=== PATIENT | male | born 2000 | race Caucasian/White ===

== ENCOUNTER 2020-10-03 14:49 | Emergency (ER) | payer OTHER ==
[~2020-10-03] VITALS: Ht 188 cm; Wt 85.1 kg
[2020-10-03 14:49] VITALS: BP 141/96
--- NOTE | 2020-10-03 15:09 | PHYS DOC ---
Adult General Chief Complaint Chief Complaint: ELBOW PROBLEM HPI HPI Patient is a 20-year-old male patient who presents to the ED today complaining of mild to moderate left elbow pain. Patient states the pain began last year after weightlifting and PT training. Patient says the pain has been on and off since then but today he was helping a friend move, he lifted something heavy and developed increasing pain especially when he extends his left elbow. He reports he is right-handed. Denies anything relieving the pain. States the pain has been constant since this afternoon. Describes the pain as sharp. Review of Systems Review of Systems Constitutional: Denies fever or chills [] Musculoskeletal: Reports left elbow pain Integument: Denies rash or skin lesions [] Neurologic: Denies headache, focal weakness or sensory changes [] All other systems were reviewed and found to be within normal limits, except as documented in this note. Allergies Allergies Allergies Coded Allergies Type Severity Reaction Last Updated Verified No Known Drug Allergies 10/03/20 No Physical Exam Physical Exam Constitutional: Well developed, well nourished, no acute distress, non-toxic appearance. [] Skin: Warm, dry, no erythema, no rash. [] Back: No tenderness, no CVA tenderness. [] Extremities: Left elbow with no obvious deformity, no edema, no ecchymosis, tenderness diffusely across the elbow. Full passive range of motion to the elbow including flexion and extension, elbow flexion. From of the left forearm, full range of motion to the left fingers. Adequate radial, medial, ulnar sensation to the left fingers. Sensation intact. Neurologic: Alert and oriented X 3, normal motor function, normal sensory function, no focal deficits noted. [] Psychologic: Affect normal, judgement normal, mood normal. [] EKG EKG [] Radiology/Procedures Radiology/Procedures []PROCEDURE: ELBOW LEFT 3V Left elbow 3 views 10/03/2020. Reason for exam: Pain. No fracture or dislocation is seen. There is no apparent joint narrowing or joint effusion. IMPRESSION: No apparent abnormality. Electronically signed by: Kristie King Jr., MD (10/03/2020 3:55 PM) [id number] DICTATED AND SIGNED BY: KRISTIE KING Jr, MD DATE: 10/03/20 4635 CC: [place]; DEAN OWEN APRN; PCP,NO ~MTH0 0 Heart Score Risk Factors: Risk Factors: DM, Current or recent (<one month) smoker, HTN, HLP, family history of CAD, obesity. Risk Scores: Risk Factors: DM, Current or recent (<one month) smoker, HTN, HLP, family history of CAD, obesity. Course & Med Decision Making Course & Med Decision Making Pertinent Labs and Imaging studies reviewed. (See chart for details) This is a 20-year-old male patient presented to the ED today with left elbow pain that began today after helping somebody move. He states he lifted some heavy items. Left elbow x-rays interpreted by radiologist are negative for any acute findings. Dav wrap recommended to the left elbow. Ice elevation encouraged. OTC medications recommended. Follow-up with your doctor in 1 to 2 weeks Nando Disclaimer Dragon Disclaimer This electronic medical record was generated, in whole or in part, using a voice recognition dictation system. Departure Departure: Impression: Primary Impression: Sprain of left elbow Disposition: 01 MO HOME SELF CARE/HOMELESS Condition: STABLE Referrals: [facility] (PCP) DEANNA HERNANDEZ MD follow up in 1-2 weeks Patient Instructions: Joint Sprain Additional Instructions: You were seen for left elbow pain. You can apply an Dav bandage to the left elbow as needed for pain and comfort. Ice and elevate the elbow . Take the prescribed medications as ordered. Follow-up with orthopedic doctor in 1 week Scripts Cyclobenzaprine Hcl (CYCLOBENZAPRINE HCL) 10 Mg Tablet 1 TAB PO TID, #30 TAB Prov: DEAN OWEN APRN 10/03/20 Naproxen (NAPROXEN) 500 Mg Tablet 1 TAB PO BID for pain, #20 TAB 0 Refills Prov: DEAN OWEN APRN 10/03/20 Methylprednisolone (MEDROL) 4 Mg Tab.ds.pk 1 PKG PO UD, #1 PKG Prov: DEAN OWEN APRN 10/03/20 Problem Qualifiers Primary Impression: Sprain of left elbow Encounter type: initial encounter Qualified Codes: S53.402A - Unspecified sprain of left elbow, initial encounter DEAN OWEN APRN Oct 03, 2020 15:09
--- NOTE | 2020-10-03 15:58 | RAD ---
Left elbow 3 views 10/03/2020. Reason for exam: Pain. No fracture or dislocation is seen. There is no apparent joint narrowing or joint effusion. IMPRESSION: No apparent abnormality. Electronically signed by: Devendra Chung Jr., MD (10/03/2020 3:55 PM) [id number]
[2020-10-03] MEDS ORDERED: METH4TAB2 PO (16:03)
[2020-10-03] MEDS ORDERED: NAPR-514 PO (16:03)
[2020-10-03] MEDS ORDERED: CYCL-331 PO (16:03)
== END 2020-10-03 16:12 | disposition home or self-care (01) ==
LOC: ER 14:49
DX: S53.492A Other sprain of left elbow, initial encounter (principal); R20.2 Paresthesia of skin; X50.0XXA Overexertion from strenuous movement or load, initial encounter; Y93.89 Activity, other specified; Y92.89 Other specified places as the place of occurrence of the external cause; Y99.8 Other external cause status
CPT/HCPCS: 73080; 99283

== ENCOUNTER 2020-11-04 13:48 | Emergency (ER) | payer OTHER ==
[~2020-11-04] VITALS: Ht 188 cm; Wt 190.0 kg
[~2020-11-04 13:48] MED LIST: CYCL-331 PO; METH4TAB2 PO; NAPR-514 PO
[2020-11-04 14:04] VITALS: BP 129/84
--- NOTE | 2020-11-04 14:16 | PHYS DOC ---
Past History Past Medical History: No Pertinent History (TAMMIE RANDLE APRN) Past Surgical History: No Surgical History (TAMMIE RANDLE APRN) Alcohol Use: None (TAMMIE RANDLE APRN) General Adult EDM: Chief Complaint: UPPER EXTREMITY PAIN HPI: HPI: Patient is a 20-year-old male who presents with elbow pain for the last 2 days. Patient states that he injured his arm a month ago, and was told he sprained his elbow. Patient states that he has been letting his arm rest until 2 days ago, when he started working out again. Patient states since he started working out again, he has an increase pain in left elbow. Denies new injury. Patient reports taking 800 mg of ibuprofen this morning for pain,with some relief. Pain is described as a sharp, shooting pain with moving. Pain is relieved at rest. Pain is worse with internal and external rotation. Patient denies shoulder pain. Denies swelling to the area. (TAMMIE RANDLE APRN) Review of Systems: Review of Systems: Constitutional: Denies fever or chills Eyes: Denies change in visual acuity HENT: Denies nasal congestion or sore throat Respiratory: Denies cough or shortness of breath Cardiovascular: Denies chest pain or edema GI: Denies abdominal pain, nausea, vomiting, bloody stools or diarrhea : Denies dysuria Musculoskeletal: Denies back pain or joint pain Integument: Denies rash Neurologic: Denies headache, focal weakness or sensory changes Endocrine: Denies polyuria or polydipsia Lymphatic: Denies swollen glands Psychiatric: Denies depression or anxiety (TAMMIE RANDLE APRN) Allergies: Allergies: Allergies Coded Allergies Type Severity Reaction Last Updated Verified No Known Drug Allergies 10/03/20 No (TAMMIE RANDLE APRN) Physical Exam: PE: Constitutional: Well developed, well nourished, no acute distress, non-toxic appearance. [] HENT: Normocephalic, atraumatic, bilateral external ears normal, oropharynx moist, no oral exudates, nose normal. [] Eyes: PERRLA, EOMI, conjunctiva normal, no discharge. [] Neck: Normal range of motion, no tenderness, supple, no stridor. [] Cardiovascular:Heart rate regular rhythm, no murmur [] Lungs & Thorax: Bilateral breath sounds clear to auscultation [] Abdomen: Bowel sounds normal, soft, no tenderness, no masses, no pulsatile masses. [] Skin: Warm, dry, no erythema, no rash. [] Back: No tenderness, no CVA tenderness. [] Extremities: no cyanosis, no clubbing, ROM intact, no edema. Pain with external, and internal rotation of the left elbow. Neurologic: Alert and oriented X 3, normal motor function, normal sensory function, no focal deficits noted. [] Psychologic: Affect normal, judgement normal, mood normal. [] (TAMMIE RANDLE APRN) EKG: EKG: [] (TAMMIE RANDLE APRN) Radiology/Procedures: Radiology/Procedures: [] (TAMMIE RANDLE APRN) Heart Score: Risk Factors: Risk Factors: DM, Current or recent (<one month) smoker, HTN, HLP, family history of CAD, obesity. Risk Scores: Score 0 - 3: 2.5% MACE over next 6 weeks - Discharge Home Score 4 - 6: 20.3% MACE over next 6 weeks - Admit for Clinical Observation Score 7 - 10: 72.7% MACE over next 6 weeks - Early Invasive Strategies (TAMMIE RANDLE APRN) Course & Med Decision Making: Course & Med Decision Making Pertinent Labs and Imaging studies reviewed. (See chart for details) [] 20-year-old male who presents with left arm pain for 2 days. Patient injured arm 1 month ago. Denies no new injury. There is no swelling to the area. No obvious deformity. Pain with internal and external rotation. We will discharge to home with follow-up with PCP. Patient to continue ibuprofen and Tylenol for pain. (TAMMIE RANDLE APRN) Course & Med Decision Making I oversaw on the above date of service of this patient and discussed the care with the REHAB ASSISTANT. I agree with the findings, plan of care, and disposition as documented. (ERICKA HAILE DO) Nando Disclaimer: Nando Disclaimer: This electronic medical record was generated, in whole or in part, using a voice recognition dictation system. (TAMMIE RANDLE APRN) Departure Departure: Impression: Primary Impression: Sprain of left elbow Disposition: 01 DC HOME SELF CARE/HOMELESS Condition: GOOD Referrals: MELVIN CREWS (PCP) Patient Instructions: Elbow Contusion, [id number] Additional Instructions: Continue ibuprofen and Tylenol for pain. You can also use ice to the area for pain and/or any swelling. Follow-up with primary care physician with possible referral for PT. Continue to left arm rest until follow-up with PCP. Thank you for coming to [facility] (ED) today and trusting us with you care. We trust that you had a positivie experience in our Emergency Department. If you wish to speak to the department management, you may call the director at [phone]. YOUR FOLLOW UP INSTRUCTIONS ARE FOLLOWS: 1. Do you have a private Doctor? If you do not have a private doctor, please ask for a resource list of physicians or clinics that may be able to assist you with follow up care. 2. The Emergency Physician has interpreted your x-rays. The X-Ray specialist will also review them. If there is a change in the findings, you will be notified in 48 hours when at all possible. 3. A lab test or culture has been done, your results will be reviewed and you will be notified if you need a change in treatment. ADDITIONAL INSTRUCTIONS AND INFORMATION: 1. Your care today has been supervised by a physician who is specially trained in emergency care. Many problems require more than one evaluation for a complete diagnosis and treatment. We recommend that you schedule your follow up appointment as recommended to ensure complete treatment of you illness or injury. If you are unable to obtain follow up care and continue to have a problem, or if your condition worsens, we recommend that you return to the ED. 2. We are not able to safely determine your condition over the phone nor are we able to give sound medical advice over the phone. For these safety reasons, if you call for medical advice we will ask you to come to the ED for further evaluation. 3. If you have any questions regarding these discharge instructions please call the ED at [phone]. SAFETY INFORMATION: In the interest of safety, wellness, and injury prevention; we encourage you to wear your sealbelt, if you smoke; quite smoking, and we encourage family to use a protective helmet for bicycling and other sporting events that present an increased risk for head injury. IF YOUR SYMPTOMS WORSEN OR NEW SYMPTOMS DEVELOP, OR YOU HAVE CONCERNS ABOUT YOUR CONDITION; OR IF YOUR CONDITION WORSENS WHILE YOU ARE WAITING FOR YOUR FOLLOW UP APPOINTMENT; EITHER CONTACT YOUR PRIMARY CARE DOCTOR, THE PHYSICIAN WHOSE NAME AND NUMBER YOU WERE GIVEN, OR RETURN TO THE ED IMMEDIATELY. TAMMIE RANDLE APRN Nov 04, 2020 14:16 ERICKA HAILE DO Nov 05, 2020 08:15
== END 2020-11-04 14:33 | disposition home or self-care (01) ==
LOC: ER 13:48
DX: S53.402A Unspecified sprain of left elbow, initial encounter (principal); X50.9XXA Other and unspecified overexertion or strenuous movements or postures, initial encounter; Y93.89 Activity, other specified; Y92.89 Other specified places as the place of occurrence of the external cause; Y99.8 Other external cause status
CPT/HCPCS: 99282

== ENCOUNTER 2020-12-21 11:25 | Emergency (ER) | payer OTHER ==
[~2020-12-21] VITALS: Ht 188 cm; Wt 79.0 kg
[2020-12-21] MEDS ORDERED: DEXAMETHASONE SOD PHOS 10 MG/ML VIAL. ONE (11:39)
[2020-12-21] MEDS ORDERED: IV NORMAL SALINE 100ML 100 ML ONE (11:40)
[2020-12-21] MEDS ORDERED: IV NORMAL SALINE 1,000ML 1,000 ML IV ONE ×2 (11:45→18:00)
[2020-12-21] MEDS ORDERED: DEXAMETHASONE SOD PHOS 10 MG/ML VIAL. IV ONE (11:45)
[2020-12-21] MEDS ORDERED: IOHEXOL 300 MG/ML 75 ML VIAL. IV ONE (12:00)
[2020-12-21] MEDS ORDERED: CONTRAST GIVEN. MC PRN (12:00)
[2020-12-21 12:14] LABS: BASO # 0.1 x10^3/uL (0.0-0.2); BASO % 1 % (0-3); EOS % 0 % (0-3); HEMATOCRIT 47.6 % (39.0-53.0); LYMPH # 7.7 x10^3/uL (1.0-4.8); LYMPH % 54 % (24-48); MEAN CORPUSCULAR HEMOGLOBIN 29 pg (25-35); MEAN CORPUSCULAR HGB CONC 34 g/dL (31-37); MEAN CORPUSCULAR VOLUME 86 fL (79-100); MONO # 1.6 x10^3/uL (0.0-1.1); MONO % 11 % (0-9); NEUT # 4.9 x10^3uL (1.8-7.7); NEUT % 34 % (31-73); PLATELET COUNT 143 x10^3/uL (140-400); RED BLOOD COUNT 5.56 x10^6/uL (4.30-5.70); RED CELL DISTRIBUTION WIDTH 13.1 % (11.5-14.5); WHITE BLOOD COUNT 14.3 x10^3/uL (4.0-11.0)
--- NOTE | 2020-12-21 12:20 | RAD ---
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 Instructions: / History: TECHNIQUE: Multiple contiguous axial images were obtained of the neck with the use of IV contrast. Po st-processing reconstructed images were obtained for interpretation. All CT scans performed at this [facility] utilize dose optimization techniques as appropriate to the exam, including the following: Aut omated exposure control and adjustment of the mA and/or KV according to patient size (this includes t echniques or standardized protocols for targeted exams where dose is indication/reason for exam). IV CONTRAST: Administered COMPARISON: None FINDINGS: INTRACRANIAL STRUCTURES & ORBITS: Unremarkable. AERODIGESTIVE: Marked bilateral faucial tonsillar hypertrophy is present, resulting in their contact at midline. Otherwise the nasal cavity, nasopharynx, oral cavity, oropharynx, hypopharynx, larynx, an d visualized trachea and esophagus demonstrate no masses or abnormal enhancement. There is no evidenc e of a tonsillar or peritonsillar abscess. The epiglottis and aryepiglottic folds are normal. CERVICAL LYMPH NODES & SOFT TISSUES: There is bilateral multilevel cervical adenopathy from level 1 in the submental station (measuring 1.3 cm) down to level 5 in the right lower posterior neck (image 64 series 2) measuring 10 mm short axis. No suppurative adenopathy. THYROID & SALIVARY GLANDS: Unremarkable. LUNG APICES: Partially imaged groundglass attenuation opacities in the posterior right lung apex is nonspecific and could reflect mild atelectatic changes. OSSEOUS: Unremarkable IMPRESSION: Extensive bilateral cervical adenopathy and faucial tonsillar hypertrophy without evidence of drainab le abscess or cervical necrotic adenopathy. Leading differential considerations are an acute viral sy ndrome versus lymphoproliferative disorder. FOR INTERNAL CODING PURPOSES Critical result: Findings discussed with Dr. Kylie Thorpe at 12/21/2020 12:08 PM. RESULT CODE: (C) Electronically signed by: Mary Hills MD (12/21/2020 12:18 PM) [id number]
[2020-12-21 12:21] LABS: CALCIUM 8.8 mg/dL (8.5-10.1); CREATININE 1.4 mg/dL (0.7-1.3); GFR 64.6; POTASSIUM 3.2 mmol/L (3.5-5.1)
[2020-12-21 12:27] LABS: ALBUMIN 3.9 g/dL (3.4-5.0); ALBUMIN/GLOBULIN RATIO 0.8 (1.0-1.7); TOTAL BILIRUBIN 1.7 mg/dL (0.2-1.0); TOTAL PROTEIN 8.6 g/dL (6.4-8.2)
[2020-12-21 13:47] LABS: % ATYL 55 % (0-0); % BANDS 7 % (0-9); % LYMPHS 8 % (24-48); % MONOS 4 % (0-10); % SEGS 26 % (35-66)
[2020-12-21 14:18] LABS: PLT ESTIMATE ADEQUATE (ADEQUATE)
--- NOTE | 2020-12-21 15:12 | PHYS DOC ---
Past History Past Medical History: No Pertinent History Additional Past Medical Histor: NONE Past Surgical History: No Surgical History Alcohol Use: None General Adult EDM: Chief Complaint: SORE THROAT HPI: HPI: Patient is a 20-year-old male coming in for 20 days of throat pain and tonsillar swelling. Patient states the symptoms have been getting worse to where now he can barely swallow his saliva. Has not been seen by his primary care. Denies any history of tonsil problems. Denies a fever. Has had difficulty eating and drinking secondary to pain and difficulty swallowing. Review of Systems: Review of Systems: All other systems within normal limits except for as noted in the HPI Current Medications: Current Meds: Current Medications Medications (Trade) Dose Ordered Sig/David Start Time Stop Time Status Last Admin Dose Admin Ceftriaxone Sodium 2 gm/ Sodium Chloride 100 ml @ 200 mls/hr 1X ONCE 12/21/20 11:45 12/21/20 12:14 DC 12/21/20 11:44 200 MLS/HR Ceftriaxone Sodium (Rocephin) 2 gm STK-MED ONCE 12/21/20 11:40 12/21/20 11:40 DC Dexamethasone Sodium Phosphate (Decadron) 10 mg STK-MED ONCE 12/21/20 11:39 12/21/20 11:39 DC Fentanyl Citrate (Fentanyl 2ml Vial) 75 mcg 1X ONCE 12/21/20 12:30 12/21/20 12:31 DC 12/21/20 12:19 75 MCG Info (Do NOT chart on this entry -- for MONITORING) 1 each PRN DAILY PRN 12/21/20 12:00 12/23/20 11:59 Iohexol (Omnipaque 300 Mg/ml) 75 ml 1X ONCE 12/21/20 12:00 12/21/20 12:01 DC 12/21/20 12:00 75 ML Sodium Chloride 100 ml @ As Directed STK-MED ONCE 12/21/20 11:40 12/21/20 11:40 DC Allergies: Allergies: Allergies Coded Allergies Type Severity Reaction Last Updated Verified No Known Drug Allergies 10/03/20 No Physical Exam: PE: Constitutional: Well developed, well nourished, muffled voice [] HENT: Normocephalic, atraumatic, bilateral external ears normal, nose normal. Erythema of posterior pharynx with severely swollen bilateral tonsils, touching in the middle, tonsillar exudates. No uvular shift [] Eyes: PERRLA, conjunctiva normal, no discharge. [] Neck: No rigidity, supple, no stridor., Tender bilateral cervical lymphadenopathy [] Cardiovascular: Regular rate and rhythm, brisk cap refill [] Lungs & Thorax: Non labored symmetric respirations, no tachypnea or respiratory distress [] Abdomen: Soft, nondistended. Skin: Warm, dry, no erythema, no rash. [] Back: Unremarkable Extremities: No deformities, range of motion grossly intact, no lower extremity edema [] Neurologic: Alert and oriented X 3, no focal deficits noted. [] Psychologic: Affect normal, judgement normal, mood normal. [] Current Patient Data: Labs: Laboratory Tests Test 12/21/20 11:39 12/21/20 12:31 White Blood Count 14.3 x10^3/uL (4.0-11.0) H Red Blood Count 5.56 x10^6/uL (4.30-5.70) Hemoglobin 16.0 g/dL (13.0-17.5) Hematocrit 47.6 % (39.0-53.0) Mean Corpuscular Volume 86 fL (79-100) Mean Corpuscular Hemoglobin 29 pg (25-35) Mean Corpuscular Hemoglobin Concent 34 g/dL (31-37) Red Cell Distribution Width 13.1 % (11.5-14.5) Platelet Count 143 x10^3/uL (140-400) Neutrophils (%) (Auto) 34 % (31-73) Lymphocytes (%) (Auto) 54 % (24-48) H Monocytes (%) (Auto) 11 % (0-9) H Eosinophils (%) (Auto) 0 % (0-3) Basophils (%) (Auto) 1 % (0-3) Neutrophils # (Auto) 4.9 x10^3uL (1.8-7.7) Lymphocytes # (Auto) 7.7 x10^3/uL (1.0-4.8) H Monocytes # (Auto) 1.6 x10^3/uL (0.0-1.1) H Eosinophils # (Auto) 0.0 x10^3/uL (0.0-0.7) Basophils # (Auto) 0.1 x10^3/uL (0.0-0.2) Segmented Neutrophils % 26 % (35-66) L Band Neutrophils % 7 % (0-9) Lymphocytes % 8 % (24-48) L Atypical Lymphocytes % (Manual) 55 % (0-0) H Monocytes % 4 % (0-10) Platelet Estimate Adequate (ADEQUATE) Sodium Level 135 mmol/L (136-145) L Potassium Level 3.2 mmol/L (3.5-5.1) L Chloride Level 97 mmol/L (98-107) L Carbon Dioxide Level 29 mmol/L (21-32) Anion Gap 9 (6-14) Blood Urea Nitrogen 10 mg/dL (8-26) Creatinine 1.4 mg/dL (0.7-1.3) H Estimated GFR (Cockcroft-Gault) 64.6 BUN/Creatinine Ratio 7 (6-20) Glucose Level 108 mg/dL (70-99) H Calcium Level 8.8 mg/dL (8.5-10.1) Total Bilirubin 1.7 mg/dL (0.2-1.0) H Aspartate Amino Transferase (AST) 94 U/L (15-37) H Alanine Aminotransferase (ALT) 102 U/L (16-63) H Alkaline Phosphatase 122 U/L (46-116) H Total Protein 8.6 g/dL (6.4-8.2) H Albumin 3.9 g/dL (3.4-5.0) Albumin/Globulin Ratio 0.8 (1.0-1.7) L Group A Streptococcus Rapid Negative (NEGATIVE) Vital Signs: Vital Signs Date Time Temp Pulse Resp B/P (MAP) Pulse Ox O2 Delivery O2 Flow Rate FiO2 12/21/20 14:00 98 16 121/71 (88) 96 Room Air 12/21/20 11:29 98.5 EKG: EKG: [] Radiology/Procedures: Radiology/Procedures: EXAM: CT Neck with IV contrast 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 Instructions: / History: TECHNIQUE: Multiple contiguous axial images were obtained of the neck with the use of IV contrast. Post-processing reconstructed images were obtained for interpretation. All CT scans performed at this facility utilize dose optimization techniques as appropriate to the exam, including the following: Automated exposure control and adjustment of the mA and/or KV according to patient size (this includes techniques or standardized protocols for targeted exams where dose is indication/reason for exam). IV CONTRAST: Administered COMPARISON: None FINDINGS: INTRACRANIAL STRUCTURES & ORBITS: Unremarkable. AERODIGESTIVE: Marked bilateral faucial tonsillar hypertrophy is present, resulting in their contact at midline. Otherwise the nasal cavity, nasopharynx, oral cavity, oropharynx, hypopharynx, larynx, and visualized trachea and esophagus demonstrate no masses or abnormal enhancement. There is no evidence of a tonsillar or peritonsillar abscess. The epiglottis and aryepiglottic folds are normal. CERVICAL LYMPH NODES & SOFT TISSUES: There is bilateral multilevel cervical adenopathy from level 1 in the submental station (measuring 1.3 cm) down to level 5 in the right lower posterior neck (image 64 series 2) measuring 10 mm short axis. No suppurative adenopathy. THYROID & SALIVARY GLANDS: Unremarkable. LUNG APICES: Partially imaged groundglass attenuation opacities in the posterior right lung apex is nonspecific and could reflect mild atelectatic changes. OSSEOUS: Unremarkable IMPRESSION: Extensive bilateral cervical adenopathy and faucial tonsillar hypertrophy without evidence of drainable abscess or cervical necrotic adenopathy. Leading differential considerations are an acute viral syndrome versus lymphoproliferative disorder. [] Heart Score: Risk Factors: Risk Factors: DM, Current or recent (<one month) smoker, HTN, HLP, family history of CAD, obesity. Risk Scores: Score 0 - 3: 2.5% MACE over next 6 weeks - Discharge Home Score 4 - 6: 20.3% MACE over next 6 weeks - Admit for Clinical Observation Score 7 - 10: 72.7% MACE over next 6 weeks - Early Invasive Strategies Course & Med Decision Making: Course & Med Decision Making Patient will need ENT which is not available in his hospital system. Discussed transfer to or [facility]. Patient chose to go to [facility]. Discussed with [facility] transfer Dr. Dr. [place] and ENT Dr. Crouch who will accept patient to the [facility] emergency department for laryngoscopy and admission [] Nando Disclaimer: Nando Disclaimer: This electronic medical record was generated, in whole or in part, using a voice recognition dictation system. Departure Departure: Impression: Primary Impression: Tonsillitis with exudate Disposition: 02 DC/TRF OTHER SHORT TERM HOS Condition: GUARDED Referrals: MELVIN CREWS (PCP) TEVIN MARCANO MD Dec 21, 2020 15:12
[2020-12-21 18:18] VITALS: BP 114/56
== END 2020-12-21 18:35 | disposition short-term general hospital (02) ==
LOC: ER 11:25
DX: J03.90 Acute tonsillitis, unspecified (principal)
CPT/HCPCS: 36415; 70491; 80053; 85007; 85025; 87040; 87070; 87880; 96361; 96365; 96375; 99285; J0696; J1100; J3010; J7030; Q9967

== ENCOUNTER 2021-12-21 19:05 | Emergency (ER) | payer OTHER ==
[~2021-12-21] VITALS: Ht 188 cm; Wt 86.7 kg
[~2021-12-21 19:05] MED LIST changes: -CYCL-331 PO; +CYCL10TA19 PO
--- NOTE | 2021-12-21 19:24 | PHYS DOC ---
Past History Past Medical History: No Pertinent History Additional Past Medical Histor: NONE Past Surgical History: No Surgical History Alcohol Use: None General Adult HPI: HPI: ".. I was playing basket ball .. and got my feet sweep out from under me... Came down hard on my right hip.... That was around 1830 hrs. 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 Patient localizes pain to right hip area and upper femur. Does have some muscle spasms appreciated. Anterior posterior compression of the pelvis does not elicit pain. Patient unable to bear weight completely on right leg. Right foot distal neurovascular is equal to left foot patient up-to-date with vaccinations, no recent travel. No specific ill contacts. 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 Normally healthy. No history immunosuppression. Was a transfer from [facility] but originally resident of [place] before moved to [place]. Review of Systems: Review of Systems: Constitutional: Denies fever or chills Eyes: Denies change in visual acuity HENT: Denies nasal congestion or sore throat Respiratory: Denies cough or shortness of breath Cardiovascular: Denies chest pain or edema GI: Denies abdominal pain, nausea, vomiting, bloody stools or diarrhea : Denies dysuria Musculoskeletal: Complains of right hip and femur pain Integument: Denies rash Neurologic: Denies headache, focal weakness or sensory changes Endocrine: Denies polyuria or polydipsia Lymphatic: Denies swollen glands Psychiatric: Denies depression or anxiety Family History: Family History: Noncontributory to presentation Current Medications: Current Meds: See nursing for home meds Allergies: Allergies: Allergies Coded Allergies Type Severity Reaction Last Updated Verified No Known Drug Allergies 10/03/20 No Physical Exam: PE: Constitutional: Well developed, well nourished, and acute distress, non-toxic appearance. [] HENT: Normocephalic, atraumatic, bilateral external ears normal, oropharynx moist, no oral exudates, nose normal. [] Eyes: PERRLA, EOMI, conjunctiva normal, no discharge. [] Neck: Normal range of motion, no tenderness, supple, no stridor. [] Cardiovascular:Heart rate regular rhythm, no murmur [] Lungs & Thorax: Bilateral breath sounds clear to auscultation [] Abdomen: Bowel sounds normal, soft, no tenderness, no masses, no pulsatile masses. [] Skin: Warm, dry, no erythema, no rash. [] Back: No tenderness, no CVA tenderness. [] Extremities: Right hip and femur tenderness, no cyanosis, no clubbing, ROM limited in right hip due to pain, no edema. [] Neurologic: Alert and oriented X 3, normal motor function, normal sensory function, no focal deficits noted. [] Psychologic: Affect anxious, judgement normal, mood normal. [] EKG: EKG: [] Radiology/Procedures: Radiology/Procedures: [address] [address] IMAGING REPORT Signed PATIENT: CARLOS SANTOS ACCOUNT: [id number] : 2000 LOCATION: ER AGE: 21 SEX: M EXAM STATUS: REG ER ORD. PHYSICIAN: DENNIS LOPEZ MD REASON: fall PROCEDURE: RIGHT FEMUR XRAY Exam: Right femur 2 views INDICATION: Fall TECHNIQUE: Frontal and lateral views the right femur Comparisons: None FINDINGS: Bone mineralization is normal. Vertically oriented lucency at the patella. Soft tissues are unremarkable. Joint spaces are well-maintained. IMPRESSION: Question vertically oriented fracture at the lateral aspect of the patella. Correlate with symptomatology to determine the need for dedicated knee radiographs with sunrise view Electronically signed by: Isidro Yu MD (12/21/2021 8:22 PM) [facility] DICTATED AND SIGNED BY: ISIDRO YU MD DATE: 12/21/212020 CC: DENNIS LOPEZ MD; PCP,UNKNOWN ~MTH0 0 [][address] [address] IMAGING REPORT Signed PATIENT: CARLOS SANTOS ACCOUNT: [id number] : 2000 LOCATION: ER AGE: 21 SEX: M EXAM STATUS: REG ER ORD. PHYSICIAN: DENNIS LOPEZ MD REASON: Fall, right hip pain and upper leg pain PROCEDURE: CT PELVIS WO CONTRAST Examination: CT bone pelvis without contrast HISTORY: History of fall, right hip pain COMPARISON: None available TECHNIQUE: Axial CT images of the pelvis were performed without contrast. Coronal and sagittal reformats are performed Exposure: One or more of the following individualized dose reduction techniques were utilized for this examination: 1. Automated exposure control 2. Adjustment of the mA and/or kV according to patient size 3. Use of iterative reconstruction technique FINDINGS: The bilateral femoral heads are within the acetabulum. There is no acute fracture or dislocation identified. The muscle bulk grossly appears unremarkable Urinary bladder is mildly distended. IMPRESSION: No acute osseous findings. Electronically signed by: Romeo Gray MD (12/21/2021 8:16 PM) [id number] DICTATED AND SIGNED BY: ROMEO GRAY MD DATE: 12/21/212006 CC: DENNIS LOPEZ MD; PCP,UNKNOWN ~MTH0 0 Heart Score: C/O Chest Pain: N/A Risk Factors: Risk Factors: DM, Current or recent (<one month) smoker, HTN, HLP, family history of CAD, obesity. Risk Scores: Score 0 - 3: 2.5% MACE over next 6 weeks - Discharge Home Score 4 - 6: 20.3% MACE over next 6 weeks - Admit for Clinical Observation Score 7 - 10: 72.7% MACE over next 6 weeks - Early Invasive Strategies Course & Med Decision Making: Course & Med Decision Making Pertinent Labs and Imaging studies reviewed. (See chart for details) Patient use ice packs as needed. Follow-up [facility]. Take Tylenol and ibuprofen for pain. Return if any concerns. Crutches as needed. [place]-ray in 2 weeks if no improvement. Take a copy of your x-ray results with you on follow- up. Impression: 1. Right hip pain-contusion [] Dragon Disclaimer: Dragon Disclaimer: This electronic medical record was generated, in whole or in part, using a voice recognition dictation system. Departure Departure: Referrals: PCP,UNKNOWN (PCP) Dragon Disclaimer This chart was dictated in whole or in part using Voice Recognition software in a busy, high-work load, and often noisy Emergency Department environment. It may contain unintended and wholly unrecognized errors or omissions. DENNIS LOPEZ MD Dec 21, 2021 19:24
[2021-12-21 19:32] VITALS: BP 122/90
--- NOTE | 2021-12-21 20:18 | RAD ---
Examination: CT bone pelvis without contrast HISTORY: History of fall, right hip pain COMPARISON: None available TECHNIQUE: Axial CT images of the pelvis were performed without contrast. Coronal and sagittal reform ats are performed Exposure: One or more of the following individualized dose reduction techniques were utilized for thi s examination: 1. Automated exposure control 2. Adjustment of the mA and/or kV according to patient size 3. Use of iterative reconstruction technique FINDINGS: The bilateral femoral heads are within the acetabulum. There is no acute fracture or dislocation iden tified. The muscle bulk grossly appears unremarkable Urinary bladder is mildly distended. IMPRESSION: No acute osseous findings. Electronically signed by: Romeo Gray MD (12/21/2021 8:16 PM) [id number]
[2021-12-21] MEDS: KETOROLAC 60 MG/2 ML VIAL. IM ONE (20:19)
--- NOTE | 2021-12-21 20:24 | RAD ---
Exam: Right femur 2 views INDICATION: Fall TECHNIQUE: Frontal and lateral views the right femur Comparisons: None FINDINGS: Bone mineralization is normal. Vertically oriented lucency at the patella. Soft tissues are unremarka ble. Joint spaces are well-maintained. IMPRESSION: Question vertically oriented fracture at the lateral aspect of the patella. Correlate with symptomato logy to determine the need for dedicated knee radiographs with sunrise view Electronically signed by: Isidro Pereyra MD (12/21/2021 8:22 PM) [facility]
== END 2021-12-21 21:48 | disposition home or self-care (01) ==
LOC: ER 19:05
DX: S70.01XA Contusion of right hip, initial encounter (principal); W18.39XA Other fall on same level, initial encounter; Y93.67 Activity, basketball; Y92.89 Other specified places as the place of occurrence of the external cause; Y99.8 Other external cause status
CPT/HCPCS: 72192; 73552; 96372; 99284; J1885